=== PATIENT | male | born 1950 | race Caucasian/White ===

== ENCOUNTER → 2025-05-24 10:08 | Outpatient (REF) | payer OTHER, SELFPAY ==
[2025-05-24 10:36] LABS: Hematocrit 22.8 % (39.0-52.0); Hemoglobin 7.3 g/dL (13.0-18.0); Mean Corp Hgb Conc. 32.0 g/dL (33.0-37.0); Mean Corpuscular Volume 93.8 fL (80.0-94.0); Platelet Count 140 10^3/uL (130-400); Red Cell Dist. Width 19.2 % (11.5-14.5)
== END ==
LOC: OLABP 10:08
PROVIDERS: ATTENDING PHYSICIAN Family Medicine
DX: I82.401 Acute embolism and thrombosis of unspecified deep veins of right lower extremity (principal); C21.0 Malignant neoplasm of anus, unspecified
CPT/HCPCS: 36415; 84443; 85027

== ENCOUNTER → 2025-05-29 09:19 | Outpatient (REF) | payer OTHER, SELFPAY ==
[2025-05-29 12:22] LABS: Hematocrit 25.2 % (39.0-52.0); Hemoglobin 7.6 g/dL (13.0-18.0); Mean Corp Hgb Conc. 30.2 g/dL (33.0-37.0); Mean Corpuscular Volume 97.7 fL (80.0-94.0); Platelet Count 425 10^3/uL (130-400); Red Cell Dist. Width 20.8 % (11.5-14.5)
[2025-05-29 13:20] LABS: Absolute Neutrophils -Man Diff 22.6 10^3/uL (1.4-6.5); Anisocytosis Slight; Normal RBC Morphology No; Platelets Checked Yes
[2025-05-29 13:21] LABS: Polychromasia Slight; Total Cells Counted 100
== END ==
LOC: OLABP 09:19
PROVIDERS: ATTENDING PHYSICIAN Family Medicine
DX: I82.401 Acute embolism and thrombosis of unspecified deep veins of right lower extremity (principal); C21.0 Malignant neoplasm of anus, unspecified; A41.9 Sepsis, unspecified organism
CPT/HCPCS: 36415; 85025

== ENCOUNTER → 2025-05-30 09:28 | Outpatient (REF) | payer OTHER, SELFPAY ==
[2025-05-30 11:00] LABS: Hematocrit 24.8 % (39.0-52.0); Hemoglobin 7.4 g/dL (13.0-18.0); Mean Corp Hgb Conc. 29.8 g/dL (33.0-37.0); Mean Corpuscular Volume 98.8 fL (80.0-94.0); Platelet Count 478 10^3/uL (130-400); Red Cell Dist. Width 21.3 % (11.5-14.5)
[2025-05-30 11:52] LABS: Absolute Neutrophils -Man Diff 22.8 10^3/uL (1.4-6.5); Anisocytosis 1+; Hypochromasia 1+; Macrocytosis 1+; Normal RBC Morphology No; Platelets Checked Yes
[2025-05-30 11:53] LABS: Total Cells Counted 100
== END ==
LOC: OLABP 09:28
PROVIDERS: ATTENDING PHYSICIAN Family Medicine
DX: I82.401 Acute embolism and thrombosis of unspecified deep veins of right lower extremity (principal); C21.0 Malignant neoplasm of anus, unspecified; D41.9 Neoplasm of uncertain behavior of unspecified urinary organ
CPT/HCPCS: 36415; 85025

== ENCOUNTER → 2025-06-05 11:06 | Outpatient (REF) | payer OTHER, SELFPAY ==
[2025-06-05 11:53] LABS: Blood Urea Nitrogen 10 mg/dl (9-20); Calcium 7.4 mg/dl (8.4-10.2); Carbon Dioxide 26 mmol/L (22-30); Chloride 108 mmol/L (98-107); Glucose 75 mg/dl (70-99); Hematocrit 26.2 % (39.0-52.0); Hemoglobin 8.0 g/dL (13.0-18.0); Mean Corp Hgb Conc. 30.5 g/dL (33.0-37.0); Mean Corpuscular Volume 96.3 fL (80.0-94.0); Nucleated Red Blood Cells % 0.2 % (-); Platelet Count 386 10^3/uL (130-400); Potassium 4.3 mmol/L (3.5-5.1); Red Cell Dist. Width 21.5 % (11.5-14.5); Sodium 138 mmol/L (135-145); eGFR > 60.00
== END ==
LOC: OLABP 11:06
PROVIDERS: ATTENDING PHYSICIAN Family Medicine
DX: I82.401 Acute embolism and thrombosis of unspecified deep veins of right lower extremity (principal); A41.9 Sepsis, unspecified organism; C21.0 Malignant neoplasm of anus, unspecified
CPT/HCPCS: 36415; 80048; 85025

== ENCOUNTER → 2025-06-12 10:56 | Outpatient (REF) | payer OTHER, SELFPAY ==
[2025-06-12 11:09] LABS: Hematocrit 27.4 % (39.0-52.0); Hemoglobin 8.4 g/dL (13.0-18.0); Mean Corp Hgb Conc. 30.7 g/dL (33.0-37.0); Mean Corpuscular Volume 96.5 fL (80.0-94.0); Nucleated Red Blood Cells % 0 % (-); Platelet Count 356 10^3/uL (130-400); Red Cell Dist. Width 19.6 % (11.5-14.5)
[2025-06-12 11:20] LABS: Blood Urea Nitrogen 11 mg/dl (9-20); Calcium 8.0 mg/dl (8.4-10.2); Carbon Dioxide 25 mmol/L (22-30); Chloride 109 mmol/L (98-107); Glucose 89 mg/dl (70-99); Potassium 4.0 mmol/L (3.5-5.1); Sodium 137 mmol/L (135-145); eGFR > 60.00
== END ==
LOC: OLABP 10:56
PROVIDERS: ATTENDING PHYSICIAN Family Medicine
DX: I82.401 Acute embolism and thrombosis of unspecified deep veins of right lower extremity (principal); C21.0 Malignant neoplasm of anus, unspecified; D41.9 Neoplasm of uncertain behavior of unspecified urinary organ
CPT/HCPCS: 36415; 80048; 85025